=== PATIENT | male | born 1990 | race Caucasian/White ===

== ENCOUNTER 2016-05-30 15:50 | Emergency (ER) | payer OTHER ==
[~2016-05-30] VITALS: Ht 177.8 cm; Wt 70.5 kg
[2016-05-30 16:10] VITALS: BP 150/99
[2016-05-30] MEDS ORDERED: NAPROSYN500 MG PO (18:46)
== END 2016-05-30 19:12 | disposition home or self-care (01) ==
LOC: EME 15:50
DX: S46.911A Strain of unspecified muscle, fascia and tendon at shoulder and upper arm level, right arm, initial encounter (principal); Y93.B3 Activity, free weights; X50.9XXA Other and unspecified overexertion or strenuous movements or postures, initial encounter
CPT/HCPCS: 73030; 99281; 99283